=== PATIENT | female | born 1960 | race Caucasian/White ===

== ENCOUNTER → 2016-08-20 12:07 | Emergency (ER) | payer SELFPAY ==
[~2016-08-20 12:07] MED LIST: PPD test dose* 5 TU/0.1 ML TEST (*USE PPD ORDER SET*) ONE
== END | disposition home or self-care (01) ==
LOC: OHCORT 12:07 → UCCORT 12:07
DX: Z11.1 Encounter for screening for respiratory tuberculosis (principal)

== ENCOUNTER 2017-05-22 17:10 | Emergency (ER) | payer OTHER ==
[2017-05-22 17:41] VITALS: BP 112/68
--- NOTE | 2017-05-22 19:14 | UC ---
Eye Complaint HPI - HPI Summary HPI Summary: PT IS C/O RIGHT EYE REDNESS, TEARING AND HER [employer] H[employer] SORTER STATES IT LOOKS A LITTLE SWOLLEN. PT DENIES INJURY, VISUAL CHANGES AND CONTACT USE. SHE ALSO DENIES ANY EYE PAIN. ONSET LAST PM. NOW HAS DISCHARGE ON LASHES WELL. HX DM BUT NOTES BS IS STABLE. - History of Current Complaint Hx Obtained From: Patient Hx Last Menstrual Period: NONE Onset/Duration: Gradual Onset Timing: Constant Pain Intensity: 6 Aggravating Factor(s): Nothing Alleviating Factor(s): Nothing Associated Signs And Symptoms: Positive: Drainage (Purulent). Negative: Photophobia, Vision Impairment Bilateral, Fever - Risk Factors Penetrating Injury Risk Factor: Negative Globe Rupture Risk Factors: Negative Acute Glaucoma Risk Factors: Diabetes Optic Artery Occlusion Risk Factors: Negative <Yeny Hi - Last Filed: 05/22/17 19:25> <Margaux Sosa - Last Filed: 05/22/17 21:03> - History of Current Complaint Chief Complaint: UCEye Stated Complaint: RIGHT EYE ISSUE Time Seen by Provider: 05/22/17 19:06 - Allergies/Home Medications Allergies/Adverse Reactions: Allergies Allergy/AdvReac Type Severity Reaction Status Date / Time No Known Allergies Allergy Verified 05/22/17 17:33 PMH/Surg Hx/FS Hx/Imm Hx - Additional Past Medical History Additional PMH: CHRONIC PAIN Endocrine History: Diabetes, Dyslipidemia Psychological History: Anxiety - Surgical History Surgical History: Yes Surgery Procedure, Year, and Place: [place], [place], [place]; CARPAL TUNNEL LEFT WRIST 2003 AT [facility] [place]. ALY, - Family History Known Family History: Positive: Cardiac Disease, Other - pt unsure of [facility] - Social History Lives: With Family Alcohol Use: None Substance Use Type: None Smoking Status (MU): Never Smoked Tobacco - Immunization History Vaccination Up to Date: Yes <Yeny Hi - Last Filed: 05/22/17 19:25> Review of Systems Constitutional: Negative Skin: Negative Eyes: Drainage - R, Eye Redness - R ENT: Other - SCRATCHY THROAT Respiratory: Negative Cardiovascular: Negative Gastrointestinal: Negative Genitourinary: Negative Motor: Negative Neurovascular: Negative Musculoskeletal: Negative Neurological: Negative Psychological: Negative Is Patient Immunocompromised?: No All Other Systems Reviewed And Are Negative: Yes <Yeny Hi - Last Filed: 05/22/17 19:25> Physical Exam Triage Information Reviewed: Yes Appearance: Well-Appearing Vital Signs: Initial Vital Signs Temp 98 F 05/22/17 17:35 Pulse 79 05/22/17 17:35 Resp 20 05/22/17 17:35 BP 112/68 05/22/17 17:35 Pulse Ox 96 05/22/17 17:35 Vital Signs Reviewed: Yes Eyes: Positive: Other: - No periorbital edema. PERRL, EOMI. Globes not firm or tender. Conjunctiva OD injected with exudate on lashes. OS not injected and no exudate. No FB under lids on R. See chart for visual acuity with glasses. ENT: Positive: Pharynx normal, TMs normal, Other - no auricular adenopathy.. Negative: Nasal congestion, Nasal drainage Neck: Positive: Supple, Nontender, No Lymphadenopathy Respiratory: Positive: Lungs clear, Normal breath sounds Cardiovascular: Positive: RRR, No Murmur, Pulses Normal Abdomen Description: Positive: Nontender, No Organomegaly, Soft Bowel Sounds: Positive: Present Neurological: Positive: Alert Psychological: Positive: Age Appropriate Behavior Skin Exam: Normal <Yeny Hi - Last Filed: 05/22/17 19:25> Vital Signs: Initial Vital Signs Temp 98 F 05/22/17 17:35 Pulse 79 05/22/17 17:35 Resp 20 05/22/17 17:35 BP 112/68 05/22/17 17:35 Pulse Ox 96 05/22/17 17:35 <Margaux Sosa - Last Filed: 05/22/17 21:03> Eye Complaint Course/Dx - Course Course Of Treatment: exam c/w conjunctivitis, will tx polytrim and f/u with her opthamologist. no concern for corneal ulcer, FB or glaucoma. - Differential Dx/Diagnosis Provider Diagnoses: Conjunctivits OD <Yeny Hi - Last Filed: 05/22/17 19:25> Discharge <Yeny Hi - Last Filed: 05/22/17 19:25> <Margaux Sosa - Last Filed: 05/22/17 21:03> - Discharge Plan Condition: Stable Disposition: HOME Patient Education Materials: Conjunctivitis (ED) Referrals: No Primary Care Phys,NOPCP [Primary Care Provider] - Liz Culver MD [Medical Doctor] - 7 Days Additional Instructions: USE THE POLYTRIM EYE DROPS, 2 DROPS RIGHT EYE EVERY 6 HOURS FOR 7 DAYS. FOLLOW UP YOUR EYE DOCTOR(ALEX) FOR THE RECHECK. SEE HER IMMEDIATELY FOR ANY CHANGES OR WORSENING. Attestation Statement User Type: Provider - I was available for consult. This patient was seen by the advanced practice provider. The patient was not presented to, seen by, or examined by me.-Ayesha <Margaux Sosa - Last Filed: 05/22/17 21:03>
[2017-05-22] MEDS ORDERED: Polymyx/Trimethoprim OPTH* 10 ML BTL RIGHT EYE ONE (19:18)
== END 2017-05-22 19:42 | disposition home or self-care (01) ==
LOC: UCCORT 17:10
DX: H10.9 Unspecified conjunctivitis (principal); J45.909 Unspecified asthma, uncomplicated
CPT/HCPCS: 99213; G0463

== ENCOUNTER 2017-11-18 15:06 | Emergency (ER) | payer OTHER ==
[2017-11-18 15:27] VITALS: BP 99/73
--- NOTE | 2017-11-18 16:01 | ED ---
Back Pain - HPI Summary HPI Summary: 57 yr old female with chronic back pain for several years. She had injections in butternut in the past, and her prior PMD discontinued them due to her DM. The patient has no new change in back pain, no new injuries. No neurological symptoms. no bowel or bladder incontinence. Location of pain is in the low back as usual for her. No fever, chills or urine symptoms. - History of Current Complaint Chief Complaint: UCBackPain Stated Complaint: BACK PAIN Time Seen by Provider: 11/18/17 15:44 Hx Last Menstrual Period: NONE Pain Intensity: 8 - Allergies/Home Medications Allergies/Adverse Reactions: Allergies Allergy/AdvReac Type Severity Reaction Status Date / Time No Known Allergies Allergy Verified 11/18/17 15:15 Home Medications: Home Medications Fluoxetine HCl [Prozac] 10 mg PO DAILY 11/18/17 [History Confirmed 11/18/17] Liraglutide [Victoza] 18 mg SC DAILY 11/18/17 [History Confirmed 11/18/17] Melatonin [Ra Melatonin] 10 mg PO BEDTIME 11/18/17 [History Confirmed 11/18/17] metFORMIN* [Glucophage 1000 MG TAB *] 1,000 mg PO BID 11/18/17 [History Confirmed 11/18/17] PMH/Surg Hx/FS Hx/Imm Hx Endocrine/Hematology History: Reports: Hx Diabetes - TYPE 2 Cardiovascular History: Reports: Hx Hypercholesterolemia Denies: Hx Hypertension, Hx Pacemaker/ICD, Other Cardiovascular Problems/ Disorders Respiratory History: Reports: Hx Sleep Apnea - POSSIBLE. WAITING FOR RESULTS FROM SLEEP STUDY Denies: Hx Asthma, Other Respiratory Problems/Disorders Musculoskeletal History: Reports: Hx Arthritis - BACK AND HANDS Sensory History: Reports: Hx Contacts or Glasses Denies: Hx Hearing Aid Opthamlomology History: Reports: Hx Contacts or Glasses Neurological History: Reports: Hx Headaches - ONE PER MONTH, Other Neuro Impairments/Disorders - PAIN CLINIC PT Psychiatric History: Reports: Hx Depression Denies: Hx Panic Disorder - Cancer History Cancer Type, Location and Year: CERVICAL CA - Surgical History Surgery Procedure, Year, and Place: [place], 2004, [place] [facility] [place] Hx Anesthesia Reactions: No Infectious Disease History: No Infectious Disease History: Denies: Traveled Outside the [place] in Last 30 Days - Family History Known Family History: Positive: Cardiac Disease, Other - pt unsure of [facility] - Social History Alcohol Use: None Substance Use Type: Reports: None Smoking Status (MU): Never Smoked Tobacco Review of Systems Constitutional: Negative Positive: Other - back pain All Other Systems Reviewed And Are Negative: Yes Physical Exam Triage Information Reviewed: Yes Vital Signs On Initial Exam: Initial Vitals Temp Pulse Resp BP Pulse Ox 98 F 90 18 99/73 98 11/18/17 15:21 11/18/17 15:21 11/18/17 15:21 11/18/17 15:21 11/18/17 15:21 Vital Signs Reviewed: Yes Appearance: Positive: Well-Appearing, No Pain Distress Skin: Positive: Warm, Skin Color Reflects Adequate Perfusion Head/Face: Positive: Normal Head/Face Inspection Eyes: Positive: EOMI ENT: Positive: Normal ENT inspection Neck: Positive: Nontender Respiratory/Lung Sounds: Positive: Clear to Auscultation, Breath Sounds Present Cardiovascular: Positive: RRR. Negative: Murmur Abdomen Description: Positive: Nontender. Negative: CVA Tenderness (R), CVA Tenderness (L) Musculoskeletal: Positive: Strength/ROM Intact, Other - no midline CTLS tenderness Neurological: Positive: Sensory/Motor Intact, Alert, Oriented to Person Place, Time, CN Intact II-III, Normal Gait, Speech Normal Diagnostics - Vital Signs Vital Signs Temp Pulse Resp BP Pulse Ox 11/18/17 15:21 98 F 90 18 99/73 98 - Laboratory Lab Statement: Any lab studies that have been ordered have been reviewed, and results considered in the medical decision making process. Back Pain Course/Dx - Course Course Of Treatment: The patient has been encouraged to discussed her shelter back pain management with her PMD who is new. Motrin script given. - Diagnoses Provider Diagnoses: Back pain Discharge - Sign-Out/Discharge Documenting (check all that apply): Patient Departure All imaging exams completed and their final reports reviewed: No Studies - Discharge Plan Condition: Good Disposition: HOME Prescriptions: Ibuprofen TAB* [Motrin TAB* 400 MG] 400 mg PO Q6H PRN #14 tab PRN Reason: Pain Patient Education Materials: Back Pain (ED) Referrals: Clem Moy MD [Primary Care Provider] - 1 Day - Billing Disposition and Condition Condition: GOOD Disposition: Home
== END 2017-11-18 16:03 | disposition home or self-care (01) ==
LOC: UCCORT 15:06
DX: M54.5 Low back pain (principal); E11.9 Type 2 diabetes mellitus without complications; F32.9 Major depressive disorder, single episode, unspecified
CPT/HCPCS: 99212; G0463

== ENCOUNTER 2018-09-08 11:37 | Emergency (ER) | payer OTHER ==
[2018-09-08 12:01] VITALS: BP 119/77
--- NOTE | 2018-10-12 14:27 | UC ---
Complaint Female HPI - HPI Summary HPI Summary: 58 year old female with concern for yeast infection > She has taken antibiotics recently and having yeast infection Sx and would like to be treawted. nothing worsens Sx besides abx and nothing improves symptom - History Of Current Complaint Chief Complaint: UCGU Stated Complaint: PERSONAL Time Seen by Provider: 09/08/18 12:05 Hx Obtained From: Patient Hx Last Menstrual Period: NONE Onset/Duration: Gradual Onset Pain Intensity: 7 Pain Scale Used: 0-10 Numeric - Allergies/Home Medications Allergies/Adverse Reactions: Allergies Allergy/AdvReac Type Severity Reaction Status Date / Time No Known Allergies Allergy Verified 09/08/18 11:53 Home Medications: Home Medications Cephalexin CAP* [Keflex CAP*] 500 mg PO QID 09/08/18 [History Confirmed 09/08/18 ] PMH/Surg Hx/FS Hx/Imm Hx - Additional Past Medical History Additional PMH: history of UTI Previously Healthy: Yes - Surgical History Surgical History: Yes Surgery Procedure, Year, and Place: [place]CTOMY, 2004, [place]; CARPAL TUNNEL LEFT WRIST 2003 AT [facility] [place]. APPY 08/2018 - Family History Known Family History: Positive: Cardiac Disease, Other - [facility] - Social History Alcohol Use: None Substance Use Type: None Smoking Status (MU): Never Smoked Tobacco - Immunization History Vaccination Up to Date: Yes Review of Systems All Other Systems Reviewed And Are Negative: Yes Genitourinary: Positive: Other - concern for yeast infection Physical Exam Triage Information Reviewed: Yes Appearance: Well-Appearing, No Pain Distress, Well-Nourished Vital Signs: Initial Vital Signs Temp 97.8 F 09/08/18 11:54 Pulse 96 09/08/18 11:54 Resp 18 09/08/18 11:54 BP 119/77 09/08/18 11:54 Pulse Ox 97 09/08/18 11:54 Vital Signs Reviewed: Yes Neck: Positive: 1 Respiratory Exam: Normal Cardiovascular Exam: Normal Abdominal Exam: Normal Musculoskeletal Exam: Normal Neurological Exam: Normal Psychological Exam: Normal Skin Exam: Normal Complaint Female Dx - Differential Dx/Diagnosis Provider Diagnosis: Vulvovaginal candidiasis Discharge - Sign-Out/Discharge Documenting (check all that apply): Patient Departure All imaging exams completed and their final reports reviewed: No Studies - Discharge Plan Condition: Good Disposition: HOME Prescriptions: Fluconazole [Diflucan 150 MG (NF)] 150 mg PO ONCE #1 tab Phenazopyridine HCl [Pyridium] 200 mg PO TID #6 tablet Patient Education Materials: Yeast Infection (ED) Referrals: Shanna Ac MD [Primary Care Provider] - 3 Days - Billing Disposition and Condition Condition: GOOD Disposition: Home
== END 2018-09-08 12:29 | disposition home or self-care (01) ==
LOC: UCCORT 11:37
DX: B37.3 Candidiasis of vulva and vagina (principal); Z87.440 Personal history of urinary (tract) infections
CPT/HCPCS: 81003; 87086; 99212; G0463

== ENCOUNTER 2019-03-23 20:51 | Emergency (ER) | payer MEDICARE, MEDICAID ==
--- OUTSIDE RECORDS SUMMARY | 2019-03-23 21:02 | XMS REPORT | Continuity of Care Document ---
:1960 External Reference #:[id number] Author Name Rose Kline MD, PHD Address [address] [place] [address], [address] [place] [address] Care Team Providers Name Role Phone Rose Kline MD, PHD - Family Care Team Information Surgical Coder [phone] Medicine Problems Active Problems Provider Date Low back pain Osmani Bradley MD, Onset: 03/03/2012 FACS Idiopathic scoliosis AND/OR Osmani Bradley MD, Onset: 03/03/2012 kyphoscoliosis FACS Generalized osteoarthritis of the hand Osmani Bradley MD, Onset: 2012 FACS Syncope Vivien Sol MD Onset: 07/17/2014 Type II diabetes mellitus uncontrolled Michael Castorena MD Onset: 06/06/2017 Blepharoconjunctivitis Michael Castorena MD Onset: 05/26/2017 Social History Type Date Description Comments Sex Unknown Tobacco Use Start: Unknown Never Smoked Cigarettes ETOH Use Denies alcohol use Tobacco Use Start: Unknown Patient denies history of smoking Recreational Drug Use Denies Drug Use Smoking Status Reviewed: 02/28/19 Patient denies history of smoking Allergies, Adverse Reactions, Alerts Description No Known Drug Allergies Medications Active Medications SIG Qnty Indications Ordering Date Provider Clotrimazole/Betamet apply to affected 45gm B35.4 Eliud, 02/28/2019 hasone Dipropionate area twice a day as MD Rose, needed PHD 1-0.05% Cream Fluconazole 1 by mouth every day 5tabs B35.4 Eliud, 02/28/2019 100mg MD Rose, [facility]ts [facility] 1.5mg 2ml E11.65 Eliud, 02/28/2019 1.5mg/0.5ML under the skin MD Rose, Solution Pen-Inject weekly PHD Metformin HCL ER 1 tabs by mouth 60tabs E11.65 [place], 02/28/2019 twice a day MD Rose, 500mg Tablets ER PHD 24HR Basaglar Kwikpen inject 45 units 15ml E11.65 [place], 02/28/2019 subcutanously at MD Rose, 100Unit/ML Solution bedtime - goal is PHD Pen-Inject morning sugar 120. Diclofenac Sodium apply to It band, 300gm M17.12 [place], 02/28/2019 1% and any sore MD Rose, Gel arthritis 4 times a PHD day as needed. M76.32 M76.31 Knee Sleeve/Open use daily as 2units M17.0 [place], 02/28/2019 Patella/Medium/Neoprene needed for knee MD [facility] swell. M17.12 Crestor 1 by mouth every 90tabs E78.2 Radha Cotter M.D. 08/02/2016 40mg Tablets day Freestyle Lite Test test blood sugar 3x 180units E11.65 Radha Cotter M.D. 08/02/2016 a day Strips Pen [place] use to inject 200units Radha Cotter M.D. 10/01/2015 31G X 8 mm insulin as directed Misc 5x/day Gabapentin 2 as needed 270caps Unknown 300mg Capsules Freestyle Lite Test Emeka Samuels PA Strips Melatonin 1 tab every at Unknown 2.5mg bedtime Chewtabs History Medications Terbinafine HCL apply to affected 60gm B35.3 Osmani Quintanilla, 12/12/2018 - 1% skin twice a day DPM 01/02/2019 Cream x3 weeks Immunizations Description No Information Available Vital Signs Date Vital Result Comment 02/28/2019 9:24am BP Systolic 107 mmHg BP Diastolic 72 mmHg Body Temperature 97.6 F Heart Rate 77 /min Respiratory Rate 18 /min Height 65.5 inches 5'5.50" Weight 219.00 lb BMI (Body Mass Index) 35.9 kg/m2 BSA (Body Surface Area) 2.07 m2 [place] body weight in kilograms 58 kg O2 % BldC Oximetry 95 % 12/12/2018 11:01am BP Systolic 127 mmHg BP Diastolic 87 mmHg Body Temperature 98.0 F Heart Rate 91 /min Height 65.5 inches 5'5.50" Weight 217.00 lb BMI (Body Mass Index) 35.6 kg/m2 BSA (Body Surface Area) 2.06 m2 [place] body weight in kilograms 58 kg O2 % BldC Oximetry 96 % Results Test Acquired Date Facility Test Result H/L Range Note Laboratory test 02/28/2019 [facility] Glycohemoglobin A1c <pending> finding [address] [place] [address] [phone] Laboratory test 02/28/2019 [facility] Vitamin <pending> [facility] [address] [facility] [address] [address] [phone] Thyroid Stim Hormone <pending> Laboratory test 02/28/2019 [facility] NT-Probnp <pending> finding [address] [place] [address] [phone] Urine Dipstick 02/28/2019 [facility] Inhouse Ua Color Dark Yellow Yellow Ua Clarity Clear Clear Ua Leuko Negative Negative Ua Nitrite Negative Negative Ua Urobilinogen 0.2 0.2 - 1.0 E.U./dL Ua Protein Negative Negative Ua PH 5.5 Low 6.5-7.5 Ua Blood Negative Negative Ua Specific [place] 1.030 1.010-1.030 Ua Ketones Negative Negative Ua Bilirubin Negative Negative Ua Glucose Negative Negative Procedures Date Code Description Status 12/12/2018 39574 Debridement Nails Any Method 6 Or More Completed 09/12/2018 13980 Debridement Nails Any Method 6 Or More Completed Medical Devices Description No Information Available Encounters Type Date Location Provider Dx Diagnosis Office Visit 02/28/2019 Family Medicine Rose Kline, E11.65 Type 2 diabetes 9:30a Naldo Canas MD, PHD mellitus with hyperglycemia B35.4 Tinea corporis M54.5 Low back pain R39.15 Urgency of urination M76.32 Iliotibial band syndrome, left leg M76.31 Iliotibial band syndrome, right leg M17.12 Unilateral primary osteoarthritis, left knee Z12.31 Encntr screen mammogram for malignant neoplasm of breast N95.1 Menopausal and female climacteric states Office Visit 12/12/2018 11:25a Podiatry Office [place], E11.65 Type 2 diabetes MELINDA Keen mellitus with hyperglycemia B35.3 Tinea pedis Assessments Date Code Description Provider 02/28/2019 E11.65 Type 2 diabetes mellitus with Rose Kline MD, PHD hyperglycemia 02/28/2019 B35.4 Tinea corporis Rose Kline MD, PHD 02/28/2019 M54.5 Low back pain Rose Kline MD, PHD 02/28/2019 R39.15 Urgency of urination Rose Kline MD, PHD 02/28/2019 M76.32 Iliotibial band syndrome, left leg Rose Kline MD, PHD 02/28/2019 M76.31 Iliotibial band syndrome, right leg Rose Kline MD, PHD 02/28/2019 M17.12 Unilateral primary osteoarthritis, left Rose Kline MD, PHD knee 02/28/2019 Z12.31 Encounter for screening mammogram for Rose Kline MD , PHD malignant neoplasm of breast 02/28/2019 N95.1 Menopausal and female climacteric states Rose Kline MD, PHD 12/12/2018 E11.65 Type 2 diabetes mellitus with Osmani Quintanilla DPM hyperglycemia 12/12/2018 B35.3 Tinea pedis Osmani Quintanilla DPM 09/12/2018 E11.65 Type 2 diabetes mellitus with Osmani Quintanilla DPM hyperglycemia 09/07/2018 K35.20 Acute appendicitis with generalized Jessica Mike PA peritonitis, without abs 09/07/2018 Z48.02 Encounter for removal of sutures Jessica Mike PA Plan of Treatment Future Appointment(s):05/30/2019 9:30 am - Rose Kline MD, PHD at [facility]03/22/2019 2:25 pm - Osmani Quintanilla DPM at Podiatry [id number]/07/2018 - Jessica Mike PAK35.20 Acute appendicitis with generalized peritonitis, without absZ48.02 Encounter for removal of sutures Functional Status Description No Information Available Mental Status Description No Information Available Referrals Description No Information Available
[2019-03-23 21:23] VITALS: BP 105/75
[2019-03-23] MEDS ORDERED: Ibuprofen TAB* 600 MG PO ONE (21:26)
[2019-03-23 21:43] LABS: Influenza A Molecular NEGATIVE (Negative); Influenza B Molecular NEGATIVE (Negative)
[2019-03-23] MEDS ORDERED: Amoxicillin PO (*) 500 MG CAP PO ONE ×2 (21:56→21:57)
--- NOTE | 2019-03-23 21:56 | UC ---
FLU HPI - HPI Summary HPI Summary: 59-year-old woman comes in with a chief complaint of influenza-like symptoms started today. Patient has a sore throats some runny nose bodyaches fevers chills. No abdominal pain no dysuria. - History of Current Complaint Chief Complaint: UCRespiratory Stated Complaint: SORE THROAT/CHILLS/EARS/FEVER Time Seen by Provider: 03/23/19 21:36 Hx Last Menstrual Period: NONE Pain Intensity: 8 - Allergy/Home Medications Allergies/Adverse Reactions: Allergies Allergy/AdvReac Type Severity Reaction Status Date / Time No Known Allergies Allergy Verified 03/23/19 21:10 Home Medications: Home Medications Dulaglutide [Trulicity] 0.75 mg SQ WEEKLY 03/23/19 [History Confirmed 03/23/19] PMH/Surg Hx/FS Hx/Imm Hx Previously Healthy: Yes Endocrine History: Diabetes, Dyslipidemia - Surgical History Surgical History: Yes Surgery Procedure, Year, and Place: [place]ST[place]CTOMY, 2004, [place]; CARPAL TUNNEL LEFT WRIST 2003 AT [facility] [place]. APPY 08/2018 - Family History Known Family History: Positive: Cardiac Disease, Other - [facility] - Social History Alcohol Use: None Substance Use Type: None Smoking Status (MU): Never Smoked Tobacco - Immunization History Vaccination Up to Date: Yes Review of Systems All Other Systems Reviewed And Are Negative: Yes Constitutional: Positive: Fever, Chills, Other - SEE HPI Skin: Positive: Negative Eyes: Positive: Negative ENT: Positive: Sore Throat, Nasal Discharge Respiratory: Positive: Cough Cardiovascular: Positive: Negative Gastrointestinal: Positive: Negative Genitourinary: Positive: Negative Motor: Positive: Negative Neurovascular: Positive: Negative Musculoskeletal: Positive: Myalgia Neurological: Positive: Negative Psychological: Positive: Negative Is Patient Immunocompromised?: No Physical Exam Triage Information Reviewed: Yes Appearance: No Pain Distress, Well-Nourished, Ill-Appearing Vital Signs: Initial Vital Signs Temp 100.7 F 03/23/19 21:14 Pulse 115 03/23/19 21:14 Resp 24 03/23/19 21:14 BP 105/75 03/23/19 21:14 Pulse Ox 97 03/23/19 21:14 Vital Signs Reviewed: Yes Eye Exam: Normal Eyes: Positive: Conjunctiva Clear ENT: Positive: Pharyngeal erythema, Nasal congestion, Nasal drainage, TMs normal Neck: Positive: Supple Respiratory: Positive: Lungs clear, Normal breath sounds, No respiratory distress Cardiovascular: Positive: RRR Abdomen Description: Positive: Nontender Musculoskeletal: Positive: Strength Intact, ROM Intact Neurological: Positive: Alert, Muscle Tone Normal Psychological: Positive: Normal Response To Family, Age Appropriate Behavior Skin Exam: Normal Flu Course/Dx - Course Course Of Treatment: Influenza and rapid strep are negative. On examination there is no chest congestion or abdominal pain or UTI symptoms. DISCUSSED VIRAL VERSES BACTERIAL INFECTIONS AND THE ROLE OF ANTIBIOTICS. THE PATIENT PREFERS TO BE ON ANTIBIOTICS AT THIS TIME. - Differential Dx/Diagnosis Provider Diagnosis: Upper respiratory infection, Influenza-like illness Discharge ED - Sign-Out/Discharge Documenting (check all that apply): Patient Departure All imaging exams completed and their final reports reviewed: No Studies - Discharge Plan Condition: Stable Disposition: HOME Prescriptions: Amoxicillin PO (*) [Amoxicillin 875 MG (*)] 875 mg PO BID #18 tab Patient Education Materials: Upper Respiratory Infection (ED) Referrals: Rose Kline MD [Primary Care Provider] - Additional Instructions: FOLLOW UP WITH YOUR DOCTOR IF NOT COMPLETELY IMPROVED. GET REEVALUATED SOONER IF NOT IMPROVING OR WORSE OR ANY QUESTIONS OR CONCERNS. - Billing Disposition and Condition Condition: STABLE Disposition: Home
== END 2019-03-23 22:07 | disposition home or self-care (01) ==
LOC: UCCORT 20:51
DX: J06.9 Acute upper respiratory infection, unspecified (principal); J02.9 Acute pharyngitis, unspecified; R09.89 Other specified symptoms and signs involving the circulatory and respiratory systems; M79.10 Myalgia, unspecified site; E11.9 Type 2 diabetes mellitus without complications; R05 Cough; Z79.899 Other long term (current) drug therapy
CPT/HCPCS: 87651; 99213; A9270-GY; G0463